=== PATIENT | female | born 1975 | race Caucasian/White ===

== ENCOUNTER → 2016-11-01 | Outpatient (CLI) | payer OTHER | LOC: BRMIMAGING 14:42 | PROVIDERS: ATTEND Physician Assistant Medical | DX: Z12.31 Encounter for screening mammogram for malignant neoplasm of breast (principal); N63 Unspecified lump in breast | CPT/HCPCS: G0202 ==

== ENCOUNTER → 2016-11-08 | Outpatient (CLI) | payer OTHER | LOC: FIMAGING 09:36 | PROVIDERS: ATTEND Physician Assistant Medical | DX: R92.8 Other abnormal and inconclusive findings on diagnostic imaging of breast (principal) | CPT/HCPCS: G0204; G0206 ==

== ENCOUNTER → 2017-05-31 | Outpatient (CLI) | payer OTHER | LOC: BRMIMAGING 09:07 | PROVIDERS: ATTEND Physician Assistant Medical | DX: R92.8 Other abnormal and inconclusive findings on diagnostic imaging of breast (principal) ==

== ENCOUNTER → 2018-09-24 | Outpatient (CLI) | payer OTHER | LOC: BRMIMAGING 14:13 | PROVIDERS: ATTEND Physician Assistant Medical | DX: Z12.31 Encounter for screening mammogram for malignant neoplasm of breast (principal) ==